=== PATIENT | female | born 2005 | race African-American/Black ===

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

== ENCOUNTER 2025-02-04 10:21 | Emergency (ER) | payer BC, SELFPAY ==
--- NOTE | 2025-02-04 10:28 | ED_ITS ---
HPI - Nausea/Vomiting/Diarrhea General Chief complaint: Nausea/Vomiting/Diarrhea Stated complaint: Nausea Patient presents to the [facility] with complaints of nausea that has been present for about 1 week. Patient noted this is worse in the morning and just has a queasy feeling in the evening. Patient noted she had a breast reduction surgery 1 month ago but this went well and has had no complications. No medication remedies attempt of her symptoms. Denies any changes in diet, medications, stress level, or any sick contacts. Denies vomiting, headache, dizziness, significant abdominal pain, or diarrhea. Related Data Home Medications ?Medication ?Instructions ?Recorded ?Confirmed ?Last Taken ?Type sertraline 50 mg tablet mg 02/04/25 Unknown History Allergies Allergy/AdvReac Type Severity Reaction Status Date / Time No Known Allergies Allergy Verified 02/04/25 10:23 Review of Systems Constitutional: Constitutional: Reports as per HPI, Denies chills, Denies fatigue, Denies fever(s) and Denies weakness Eyes: Eyes: Reports no additional eye complaints ENT: Reports system reviewed and no additional complaints, except as documented Cardiovascular: Cardiovascular: Reports no additional cardiovascular complaints Respiratory: Respiratory: Reports no additional respiratory complaints Gastrointestinal: Gastrointestinal: Reports as per HPI, Denies abdominal pain, Denies bloating, Denies constipation, Denies heartburn, Denies diarrhea, Reports nausea and Denies vomiting Genitourinary: Genitourinary: Reports no additional female genitourinary complaints Musculoskeletal: Musculoskeletal: Reports no additional musculoskeletal complaints Integumentary/Breasts: Skin/Breast: Reports system reviewed and no additional complaints, except as docu Neurologic: Reports as per HPI, Denies vertigo, Denies dizziness, Denies syncope, Denies focal weakness and Denies weakness Psychiatric: Psychiatric: Reports no additional psychiatric complaints Endocrine: Endocrine: Reports no additional endocrine complaints Hematologic/Lymphatic: Hematologic/Lymphatic: Reports no additional hematologic/lymphatic complaints Allergic/Immunologic: Allergic/Immunologic: Reports no additional allergic/immunologic complaints PMFSH Past Medical History Medical History (Updated 02/04/25 @ 10:54 by GUADALUPE Forte-C) Patient denies significant medical history Social History Social History (Updated 12/25/21 @ 22:05 by Agustin Barboza, DO) Smoking status: Never smoker Exam Const: General: healthy appearing and no acute distress Nutritional Appearance: well nourished Orientation/consciousness: patient oriented x3 Limitations: no limitations Neck: Neck: normal visual inspection and no lymphadenopathy Resp: Effort & Inspection: normal respiratory effort Auscultation: clear to auscultation bilaterally Cardio: Rate: regular rate Rhythm: regular rhythm GI: Inspection: non-distended GI Palp: Yes Soft to palpation, No Tenderness to palpation present (GI), No Guarding due to palpation present (GI), No Rigid due to palpation, No Palpable mass present and No Rebound tenderness present Auscultation: normal bowel sounds : General: Yes bladder normal to palpation and Yes no CVA tenderness Back/Spine/Pelvis: Back: no CVA tenderness Skin: General skin exam: normal color Rashes: no rashes Wounds: no wounds Neuro: General: patient oriented x3 Speech: normal speech Gait exam (Neuro): Normal gait present Extrem: General: normal to inspection, no clubbing, cyanosis or edema and no pedal edema Psych: Mental Status: mental status grossly normal Affect: normal affect Attitude: cooperative Course Course Level of Care: Express Care Visit Vital Signs Vital signs: Vital Signs Temperature 97.3 F L 02/04/25 10:32 Pulse Rate 81 02/04/25 10:32 Respiratory Rate 18 02/04/25 10:32 Blood Pressure 120/85 02/04/25 10:32 Pulse Oximetry 100 02/04/25 10:32 Temperature 97.3 F L 02/04/25 10:32 Pulse Rate 81 02/04/25 10:32 Respiratory Rate 18 02/04/25 10:32 Blood Pressure 120/85 02/04/25 10:32 Pulse Oximetry 100 02/04/25 10:32 MDM - Nausea/Vomiting/Diarrhea MDM Narrative Medical decision making narrative: Negative test. Other obvious symptoms. will do 4 weeks of PPI and follow-up with PCP if symptoms do not improve The patient was evaluated by myself in the express care. History is obtained from patient who is an independent historian and physical exam was performed. Available medical records were reviewed at this time. Exam findings show no acute concerns or changes; patient is non-toxic appearing and is in no distress. Patient is appropriate for outpatient treatment and follow-up. I have evaluated and discussed social determinants of health with the patient that could potentially impact subsequent diagnosis and treatment plans. Differential diagnosis and treatment plan were discussed with the patient. Patient agrees with discussion and after shared medical decision making agrees with plan of care. All questions were answered to the patient's satisfaction. Differential Diagnosis Differential diagnosis: Likely traveler's diarrhea, food poisoning, gastroenteritis and dehydration Medical Records Attestation: I reviewed the patient's medical records. Lab Data Attestation: I reviewed the patient's lab results. Labs: Lab Results 02/04/25 Range/Units 10:50 POC Urine HCG, Qual Negative (Negative) Discharge Plan Discharge Clinical Impression: Nausea Patient Disposition: Home Condition: Stable Instructions: Antibiotic Form, Acute Nausea and Vomiting (ED), Viral Syndrome (ED) Additional Instructions: take the omeprazole medication once daily 1st thing in the morning on an empty stomach. Limit fried, fatty, acidic foods may use the Zofran for nausea this can be taken every 8 hours if you still continue to have symptoms 1 week after starting this medication follow-up with primary care for further evaluation. Your testing in clinic was negative. Patient Language: Italian Prescriptions: New omeprazole 20 mg capsule,delayed release(DR/EC) 20 mg PO DAILY Qty: 30 0RF ondansetron 4 mg tablet,disintegrating 4 mg PO Q8H PRN (Reason: nausea and vomiting) Qty: 20 0RF No Action sertraline 50 mg tablet Follow-up/Referrals: PHYSICIAN,MANAGER OF ORGANIZATIONAL DEVELOPMENT [Primary Care Provider, Internal Medicine] Time of Disposition: 10:54
[2025-02-04 10:32] VITALS: BP 120/85; PULSE 81; RESP 18; TEMP 36.3; O2SAT 100
[2025-02-04 10:52] LABS: BEDSIDEPREGUCG Negative (Negative)
== END 2025-02-04 10:56 | disposition home or self-care (01) ==
PROVIDERS: Emergency Provider Nurse Practitioner Family
DX: R11.0 Nausea (principal)
CPT/HCPCS: 81025; 99213; G0463